=== PATIENT | male | born 1970 | race Caucasian/White ===

== ENCOUNTER 2024-10-22 07:03 | Inpatient (IN) | payer OTHER, SELFPAY ==
[2024-10-22] VITALS (8 sets, daily range): BP systolic 105–144; BP diastolic 73–91; BMI 23.5; BMI 24.0
[2024-10-22 03:11] LABS: Hematocrit 43.5 % (39.0-52.0); Hemoglobin 16.1 g/dL (13.0-18.0); Mean Corp Hgb Conc. 37.0 g/dL (33.0-37.0); Mean Corpuscular Volume 90.8 fL (80.0-94.0); Nucleated Red Blood Cells % 0 % (-); Platelet Count 242 10^3/uL (130-400); Red Cell Dist. Width 11.9 % (11.5-14.5)
[2024-10-22 03:19] LABS: Urine Character Clear (Clear)
[2024-10-22 03:38] LABS: ALT (SGPT) 107 U/L (0-50); AST (SGOT) 163 U/L (17-59); Albumin 4.3 g/dl (3.5-5.0); Alkaline Phosphatase 85 U/L (38-126); Blood Urea Nitrogen 16 mg/dl (9-20); Calcium 9.3 mg/dl (8.4-10.2); Carbon Dioxide 22 mmol/L (22-30); Chloride 103 mmol/L (98-107); Estimated Creatinine Clearance 123 ml/min; Glucose 132 mg/dl (70-99); Lipase 1120 U/L (23-300); Potassium 4.0 mmol/L (3.5-5.1); Sodium 135 mmol/L (135-145); Total Protein 7.4 g/dl (6.3-8.2); eGFR > 60.00
[2024-10-22 03:50] LABS: Urine White Cell 0-2 /HPF (0-5)
[2024-10-22] MEDS: ZOFRAN 4 MG IV (03:54)
[2024-10-22] MEDS: LR 1000 IV ×4 (03:54→18:41)
[2024-10-22] MEDS: MORPHINE SULFATE 4 MG IV (03:56)
[2024-10-22] MEDS: DILAUDID 1 MG IV ×4 (05:20→20:18)
--- NOTE | 2024-10-22 05:46 | ED.GENMED ---
History of Present Illness
General
Chief Complaint: Abdominal Pain
Source: patient
Time Seen by Provider: 10/22/24 03:09
Nursing documentation reviewed up to this point in time: agreed with
History of Present Illness
History of Present Illness:
Note:
CHIEF COMPLAINT(S)
Abdominal pain
HISTORY OF PRESENT ILLNESS
The patient is a 54-year-old male who presents with abdominal pain that began on Tuesday morning, persisting since yesterday morning. The patient describes waking up with the pain. He has experienced similar pain in the past, which he associated with
alcohol consumption. On examination, tenderness was noted in the abdomen upon palpation.
PHYSICAL EXAM
- Cardiovascular: Heart sounds are normal.
- Respiratory: Lung sounds are clear.
Nursing notes reviewed and vital signs reviewed.
PLAN
The plan includes administering medication for pain relief and performing a computed tomography (CT) scan to further evaluate the source of the abdominal pain.
DIFFERENTIAL DIAGNOSIS
The Differential Diagnosis includes, in no particular order and is not limited to:
1. Acute pancreatitis
2. Peptic ulcer disease
3. Gastroesophageal reflux disease (GERD)
4. Cholelithiasis
5. Cholecystitis
6. Hepatitis
7. Bowel obstruction
8. Gastritis
9. Diverticulitis
10. Appendicitis
Disposition:
SUMMARY OF ENCOUNTER
The patient is a 24-year-old male who presented with approximately 24 hours of upper abdominal pain. Lab results showed an elevated lipase level. A CT scan of the abdomen and pelvis with IV contrast revealed moderate stranding around the pancreas,
most pronounced in the pancreatic tail, with ill-defined hypoenhancement in the pancreatic tail. These findings are suspicious for acute interstitial edematous pancreatitis involving the pancreatic tail. The common bile duct (CBD) was normal with no
significant dilation observed. Additionally, there was a thick-walled distended distal duodenum, likely reactive. The decision was made to admit the patient to the hospital for management of suspected acute interstitial edematous pancreatitis
affecting the pancreatic tail.
DISPOSITION
Admit
ASSESSMENT
The clinical findings and imaging results indicate acute interstitial edematous pancreatitis, predominantly affecting the pancreatic tail. This is supported by elevated lipase levels and CT scan findings.
INDEPENDENT REVIEW OF LABS AND INTERPRETATION OF TESTS
My independent review of lipase is elevated.
My independent interpretation of the CT scan of the abdomen and pelvis is moderate stranding around the pancreas, ill-defined hypoenhancement in the pancreatic tail, indicative of acute interstitial edematous pancreatitis with involvement of the
pancreatic tail. The common bile duct is normal with no significant dilation of the pancreatic duct.
PLAN
The patient will be admitted for further management of acute interstitial edematous pancreatitis. Treatment may include intravenous fluids, pain control, and monitoring for any complications. Further evaluation and treatment will be conducted by the
hospital service.
MEDICAL DECISION MAKING
- Number and Complexity of Problems Addressed: Chronic conditions affecting care include acute pancreatitis, derived from the differential diagnosis: acute pancreatitis, peptic ulcer disease, gastroesophageal reflux disease (GERD), cholelithiasis,
cholecystitis, hepatitis, bowel obstruction, gastritis, diverticulitis, appendicitis.
- Data:
Category 1
My independent interpretation of the CT scan of the abdomen and pelvis
Elevated lipase confirmed
- Risk:
Urgent admission due to the risk of pancreatitis complications and need for immediate treatment.
Phy Exam
General Physical Exam
General Presentation: moderate distress
General Skin: warm and dry
General Habitus: normal
Cardiovascular Exam
Cardiovascular Exam: regular rate/rhythm and no edema
Gastrointestinal Exam
Palpation: left upper quadrant: Moderate tenderness, right upper quadrant: Moderate tenderness and generalized: Mild tenderness
Neurological Exam
Neurological Exam: alert and oriented x3
Musculoskeletal Exam
Musculoskeletal Exam: full ROM and no edema
Skin Exam
Skin Exam: normal color and warm/dry
Psychiatric Exam
Psychiatric Exam: normal mood/affect
Course
Orders/Labs/Results
Orders:
Orders
10/22/24 02:33
IV Insert/Care/Rem.- Treatment PRN
Straight cath- Treatment ONCE
10/22/24 02:59
Cardiovascular Evaluation Urgent
Is patient fasting: Yes
Complete Blood Count/With Diff Urgent
Comprehensive Metabolic Panel Urgent
LDL Cholesterol, Direct Urgent
Lipase Urgent
Triglycerides Urgent
Is patient fasting: Yes
Comment: ADD
Urinalysis Reflex To Culture Urgent
Date Specimen was Collected: 10/22/24
Time Specimen was Collected: 02:33
Urine Microscopic Reflex Cult Urgent
10/22/24 03:03
EKG [Electrocardiogram (*1)] Urgent
Reason for Study: Abdominal Pain
EKG- Treatment ONCE
10/22/24 03:37
Morphine Sulfate 4 mg IV NOW STA
Ondansetron Injectable [Zofran] 4 mg IV NOW STA
10/22/24 03:38
CT Abd/pelvis W Iv Cont Urgent
Comment:
Reason For Exam: upper abd pain
10/22/24 04:00
Lactated Ringers [Lr] 1,000 ml IV 250 mls/hr
10/22/24 05:11
HYDROmorphone [Dilaudid] 1 mg IV NOW STA
10/22/24 Breakfast
NPO
Allow oral meds: Yes
Allow clear liquids: Sips of Clears
10/22/24 06:33
HYDROmorphone [Dilaudid] 0.5 mg IV NOW STA
Ketorolac [Toradol] 30 mg IV NOW STA
10/22/24 06:38
Admit/Transfer Patient As Directed
Co-Sign Provider:
Level of Care: Inpatient admission
Assign to:: Medical/Surgical
Physician / Group: Olga
Diagnosis: Acute pancreatitis
Reason for Hospitalization: severe pancreatitis
Expected length of stay greater than two midnights?: Yes
ELOS- Estimated Length of Stay in days: 2
I certify the patient meets the requirements for IP care: Yes
Code Status As Directed
Resuscitation Status: Full Code
PRN Pain Medication Management As Directed
May give lesser potent ordered pain med per pt: Yes
preference::
Protocol:: Medication orders for pain may be administered in a
manner that supports deferring to patient preference
when the pt is:
- Requesting an ordered lesser potent pain medication.
Least to most potent pain medications are defined
as: acetaminophen < NSAID < tramadol < opioids
(morphine, oxycodone, hydromorphone).
- Requesting a lesser dose of the same medication IF
ORDERED.
- Requesting a less intrusive route of administration
if both routes are prescribed by the provider (PO <
IV).
10/22/24 06:44
Add On- LAB Stat
Tests Added?: Triglyceride level
10/22/24 09:03
Acetaminophen [Tylenol] 650 mg PO Q4HPRN PRN
HYDROmorphone [Dilaudid] 1 mg IV Q3HPRN PRN
Ketorolac [Toradol] 15 mg IV Q6HPRN PRN
Lactated Ringers [Lr] 1,000 ml IV 110 mls/hr
Ondansetron Injectable [Zofran] 4 mg IV Q6HPRN PRN
10/22/24 09:03
Activity As Directed
Activity Level: With Assistance
Pneumatic Compression Sleeves As Directed
Type: Knee high
Vital Signs As Directed
Frequency: Per unit guidelines
DX Deep Vein Thrombosis Video Routine
10/23/24 06:19
Complete Blood Count/No Diff IN AM
Lipase IN AM
Abnormal Lab Results
10/22/24
02:59
WBC 19.4 H 10^3/uL
(4.8-10.8)
MCH 33.6 H pg
(27.0-31.0)
Abs Immat Gran (auto) 0.1 H 10^3/uL
(0-0.05)
Absolute Neuts (auto) 17.0 H 10^3/uL
(1.4-6.5)
Absolute Lymphs (auto) 1.0 L 10^3/uL
(1.2-3.4)
Absolute Monos (auto) 1.1 H 10^3/uL
(0.1-0.6)
Immature Gran % 0.6 H %
(0-0.5)
Neutrophils % 87.7 H %
(42.2-75.2)
Lymphocytes % 5.3 L %
(20.5-51.1)
Glucose 132 H mg/dl
(70-99)
AST 163 H U/L
(17-59)
ALT 107 H U/L
(0-50)
Triglycerides 1426 H mg/dl
(10-149)
Total Cholesterol 210 H mg/dl
(50-199)
Lipase 1120 H* U/L
(23-300)
Urine Ketones 1+ A
(Negative)
Ur Occult Blood Reflex 3+ A
(Negative)
Urine RBC 7-10 A /HPF
(0-2)
Urine Bacteria (Reflex) Few A
(Negative)
Urine Albumin (Reflex) 1+ A
(Neg - Trace)
10/22/24 02:59
10/22/24 02:59
Vital Signs
Initial and Last Documented VS:
Initial Vital Signs
Temp Pulse Resp BP Pulse Ox
97.7 F 73 20 144/90 100
10/22/24 02:28 10/22/24 02:28 10/22/24 02:28 10/22/24 02:28 10/22/24 02:28
Last Documented Vital Signs
Temp Pulse Resp BP Pulse Ox
99.2 F 100 16 114/80 95
10/23/24 23:22 10/23/24 23:22 10/23/24 23:22 10/23/24 23:22 10/23/24 23:22
*Pulse Oximetry
SaO2: 100
Oxygen Mode of Delivery: Room air
Patient hypoxic: no
*Critical Care Note
Total Time (30-74mins, 75-104mins- exclusive of procedures): 33 (Critical care statement: A total of 33 minutes of critical care time was provided for this patient. This time is separate from time utilized to perform the aforementioned documented
procedures. Aggregate critical care time includes only time during which I was engaged in work directl)
Update Note
Update Note:
NAME: MIKKI CASTILLO
DATE OF EXAM: 10/22/2024
Patient No: [id number]
Physician: ASAD
Date of : 1970
Past Medical History (entered by Technologist):
Reason For Exam (entered by Technologist):
Other Notes (entered by Technologist): Patient started with left abd pain yesterday morning. The pain has now moved to his epigastric area. Vomited 2 times.
No prior
Additional Information (per [facility]):
CT Abdomen and Pelvis (with IV contrast):
IMPRESSION:
Moderate stranding about the pancreas, most pronounced within the pancreatic tail where there is ill-defined hypoenhancement within the pancreatic tail (series 201, image 24) measuring approximately 1.5 x 1.6 cm.
Overall findings are suspicious for acute interstitial edematous pancreatitis with necrosis of the pancreatic tail.
The CBD is normal. No significant dilation of the CBD or pancreatic duct.
Mildly thick walled distal duodenum, likely reactive.
The report was faxed/transmitted at 5:32 AM EST. Please call [facility] at if you would like to discuss the case or have questions.
Tony Ho M.D.
This report has been electronically signed and verified by the Radiologist whose name is printed above.
ED Attending Note
-
Portions of this chart may have been created with voice recognition software.� Occasional wrong word or��sound alike� substitutions may have occurred due to the inherent limitations of voice recognition software.
Discharge Plan
Departure
Patient Disposition: Admit
Date of Disposition: 10/22/24
Time of Disposition: 05:46
Admit to: Telemetry
Presentation/result/management discussed w/ accepting MD/DO: Hospitalist
Discharge Problem:
Pancreatitis, Interstitial pancreatitis
Interventions
Interventions:
*Risk Screen - Suicide Last Done: 10/22/24 02:28
*General Assessment Last Done: 10/22/24 02:28
*Neglect/Abuse Screening Last Done: 10/22/24 02:28
*ED- Fall Risk Assessment Last Done: 10/22/24 02:28
*ED COVID-19 Vaccine History Last Done: 10/22/24 02:28
*Nursing Disposition Last Done: 10/22/24 09:03
HN-Whyvdo-Pwmxsyxhnn Assessment Last Done: 10/22/24 02:46
Discharge Date and Time
Discharge Date/Time: 10/22/24 09:03
--- NOTE | 2024-10-22 06:16 | HPS.HSE ---
Family Physician
-
Family Physician: Tiana Parker MD
Chief Complaint
-
Abdominal pain
History of Present Illness
This is a 54-year-old male (Welsh-speaking) with no known segment past medical history presenting to the emergency department with abdominal pain nausea and vomiting.
Patient (interpretation via spouse), reports about 2 days of intermittent abdominal pain and now more persistent. Patient reports pain started in the left flank and radiated to the epigastric region. Denies any urinary symptoms. Denies any fevers
or chills. Denies any headache. Reports associated nausea and 2 episodes of nonbloody and nonbilious emesis. Denies any prior history of such pain. Patient denies any history of gallstones. Denies history of pancreatitis. Patient reports that
he drinks about 3 glass of 5% alcoholic beverage when he drinks which he says is not daily but occasionally. He he and spouse did endorse that he drank a little bit more over 19 October all the day. He started having pain about 2 days ago. He has not
had any drink since then. He denies any medications. He denies using anything [id number]. He denies any family history of intra-abdominal processes. He denies any family history of connective tissue disease.
In the emergency department patient was afebrile, blood pressure 140/90 with a pulse of 79 was satting 100% on room air. ECG shows a normal sinus rhythm at a rate of [address] or T wave changes.
He has leukocytosis to 19.4, hemoglobin and platelets were normal. Electrolytes are normal. BUN and creatinine were normal. Glucose was normal.
Total bilirubin was normal. AST 163 ALT 107 and lipase was 1120.
CT of the abdomen pelvis revealing moderate stranding about the pancreas most pronounced within the pancreatic tail with ill-defined hypoenhancement measuring approximately 1.5 x 1.6 cm suspicious for acute interstitial edematous pancreatitis with
necrosis of the pancreatic tail. CBD is normal. No segment dilation of the pancreatic duct. Reactive changes with mildly thick walled distal duodenum.
Medical History
Past Medical History
Past Medical History: Reports None
Past Surgical History: Reports None
Social History
Tobacco: Non-smoker
Alcohol: Occasional
Drug: None
Personal:
Living: With Family
Family History
Family History: Not pertinent
Allergies / Home Medications
Allergies reflects when Allergies were last updated in [facility].
Home Medications with original date entered in [facility]
Allergy/Medication List:
Allergies
Allergy/AdvReac Type Severity Reaction Status Date / Time
No Known Allergies Allergy Unverified 10/22/24 02:28
Home Medications
No Meds [No Current Medications] 10/22/24
Review of Systems
-
History Source: Patient
Constitutional: Reports No Symptoms
EENT: Reports No Symptoms
Respiratory: Reports No Symptoms
Cardiac: Reports No Symptoms
Abdomen/GI: Reports Abdominal Pain
: Reports No Symptoms
Musculoskeletal: Reports No Symptoms
Skin: Reports No Symptoms
Neurological: Reports No Symptoms
Endocrine: Reports No Symptoms
Hematologic/Lymphatic: Reports No Symptoms
Psych: Reports No Symptoms
Physical Exam
Vital Signs
Vital Signs
Temp Pulse Resp BP Pulse Ox
97.7 F 73 20 144/90 100
10/22/24 02:28 10/22/24 02:28 10/22/24 02:28 10/22/24 02:28 10/22/24 05:52
Physical Exam
General: Well Developed, Well Nourished and No Apparent Distress
HEENT: NormoCephalic, Moist mucous membranes and Atraumatic
Respiratory: Clear
Cardiac: S1/S2 and Regular Rhythm; No Murmur or Rub
GI: Soft, Non Tender, Non Distended and Normal Bowel Sounds; No Organomegaly
Rectal: Deferred by Provider
Musculoskeletal: No Clubbing, No Cyanosis and No Edema
Skin: No Rash
Neuro: Nonfocal/grossly intact
Laboratory Results
-
10/22/24 02:59
10/22/24 02:59
Laboratory Results
Total Bilirubin 1.3 mg/dl (0.2-1.3) 10/22/24 02:59
AST 163 U/L (17-59) H 10/22/24 02:59
ALT 107 U/L (0-50) H 10/22/24 02:59
Alkaline Phosphatase 85 U/L (38-126) 10/22/24 02:59
Lipase 1120 U/L (23-300) H* 10/22/24 02:59
Data Reviewed
-
CT Scan: Report Reviewed by me
Medical Tests (Nuc Med, Echo, EKG etc): Image Personally Visualized and interpreted
Lab Data: Labs Reviewed by me
Old Records: Reviewed
Impression/Plan
-
IMPRESSION:
54-year-old male with no known past medical history presenting to the emergency department abdominal pain and found to have acute pancreatitis with interstitial pancreatitis and possibility of necrosis in the pancreatic tail. He has a mild
transaminitis as well. Overall picture is consistent with alcoholic pancreatitis although patient did not endorse heavy drinking. Cannot completely rule out gallstone pancreatitis as a gallstone might of passed through but history is not
consistent with this without recurrent episode of waxing and waning abdominal pain. No evidence of acute infection or cholangitis at this time.
PLAN:
Acute pancreatitis -severe, suspect alcohol induced pancreatitis with interstitial pancreatitis and possibility of developing necrosis
- Admit to MedSurg
-N.p.o. for now
-Pain control with Dilaudid, Toradol, acetaminophen
-Aggressive hydration with 200 mL of LR per hour x 2 L
-Antiemetics
-Trend LFTs
-Will get MRCP to rule out ongoing biliary obstruction as well given no prior history of pancreatitis, severe pancreatitis and possible gallstones. AST to ALT ratio not definitive for alcoholic hepatitis.
- Check triglyceride level
- encouraged abstinence from etoh
- No offending drugs, no recent flulike illness or sick contacts or recent travels.
DVT prophylaxis�SCDs
CODE STATUS�full code
[2024-10-22] MEDS: DILAUDID 0.5 MG IV (06:41)
[2024-10-22] MEDS: TORADOL 30 MG IV (06:43)
--- NOTE | 2024-10-22 08:34 | W.PN.HOSP.TC ---
Addendum entered and electronically signed by Solis Valentine MD 10/22/24 21:22:
Attending Addendum-
I saw and evaluated the patient. I reviewed the resident�s note and agree with findings and plan as documented in the resident�s note. Sub: Continues to have epigastric pain. Denies fevers chills NV. Doesn't feel hungry. Full 12 point ROS reviewed
and negative except as documented Exam: Vitals reviewed in chart GEN-NAd heart RRR lungls clear abd soft TTP epigastric region, no reboud guarding LE no edema
Plan:
#Acute necrotizing pancreatitis
-Severe Hypertriglyceridemia- induced
-cont NPO
-Pain control with Dilaudid, Toradol, acetaminophen
-Aggressive IV hydration LR
-Antiemetics
-Trend LFTs
-CT A/P-Findings of acute pancreatitis with a 1.8 cm focus of hypoattenuation within the pancreatic tail, likely necrosis. There is fluid which extends into the left paracolic gutter. reactive duodenitis.
-c/s GI
-check TG in am
-t/c insulin gtt
# Leukocytosis
- possibly reactive
- repeat CBC In am
- hold off on empiric abx for now
# Transaminitis
- trend
- cont IVF
DVT prophylaxis�SCDs
CODE STATUS�full code->DNR
ACP
Patient consented to discuss, was alone, time spent explanation of advance directives, changes in health status, patient�s health care wishes if the patient becomes unable to make health decisions, goals of care, code status, and prognosis, 'I dont
want to be full code' code status change- 16 minutes
Time spent coordinating care, review of plan of care with resident, personally reviewed previous records in EMR, med rec, labs, radiology, d/w nursing, family total time documented is exclusive of any additional time listed that was spent in advance
care planning discussion -�51 minutes
Original Note:
Today's Communication/Plan
-
C/w IVF, pain management, antiemetics, NPO for now, pending final read CT Abd/pelvis
Assessment / Plan
Assessment / Plan
54 year old male with no significant pmhx who presented with 2 days of abdominal pain, nausea and vomiting, found to have pancreatitis
#Acute Interstitial Pancreatitis w/ necrosis of pancreatic Tail
- likely alcohol induced given history, no biliary findings of imaging and no hx of gallstones
- abdominal pain, Lipase >3x ULN, Leukocytosis 19.4
- prelim CT report - peripancreatic stranding, necrosis of pancreatic tail, interstitial edema surrounding pancreas. Pending final read, may consider additional imaging US Abd vs. MRCP depending on findings.
- IVF LR 1.5ml/kg/hr
- IV pain management with IV Toradol for moderate, Dilaudid as needed for severe pain
- Zofran prn
- triglycerides pending
- NPO for now
- monitor for development of systemic signs given pancreatic tail necrosis
#Hypertriglyceridemia
- TGs 1426, Lipid Panel unable to result properly due to TGs, no prior h/o lipid disease per patient
- likely contributing factor to pancreatitis
- Fenofibrate 145mg hs for TGs >1000 in setting of acute pancreatitis
- will wait for TG reduction to repeat Lipid Panel, or possibly do as OP
DVT PPx: SCDs
Code Status: Full Code
Anticipated Discharge: 24 - 48 hours
Subjective/Interval History
-
Date of Service: October 22, 2024
Feeling slightly better after morphine. No new nausea or vomiting. Still having abd pain. Able to tolerate sips of water. No fevers or chills. Patient is Romanian speaking.
Objective Data
-
Labs:
Laboratory Results
10/22/24
02:59
WBC 19.4 H
Hgb 16.1
Hct 43.5
Plt Count 242
Sodium 135
Potassium 4.0
Chloride 103
Carbon Dioxide 22
BUN 16
Creatinine 0.7
Glucose 132 H
Calcium 9.3
Total Bilirubin 1.3
AST 163 H
ALT 107 H
Alkaline Phosphatase 85
Vital Signs:
Vital Signs
Temp Pulse Resp BP Pulse Ox
97.7 F 75 18 131/86 95
10/22/24 02:28 10/22/24 07:15 10/22/24 07:15 10/22/24 07:00 10/22/24 07:15
Review of Systems
-
History Source: Patient
All other systems: Reviewed and negative
Constitutional: Reports No Symptoms
EENT: Reports No Symptoms Reported
Respiratory: Reports No Symptoms
Cardiac: Reports No Symptoms
Abdomen/GI: Reports Abdominal Pain and Nausea; Denies Vomiting, Diarrhea, Bloody Stools or Hematemesis
Breast: Reports N/A
Genitourinary: Reports No Symptoms
Musculoskeletal: Reports No Symptoms
Skin: Reports No Symptoms
Neuro: Reports No Symptoms
Hematologic / Lymphatic: Reports No Symptoms
Physical Exam
-
General: Well Developed, Well Nourished, No Apparent Distress, Comfortable and Conversant
HEENT: Normocephalic, Atraumatic, Moist Mucous Membranes, Anicteric, [place] Conjunctivae, PERRLA, Nose Appears Normal and Ears Appear Normal
Respiratory: Clear to Auscultation; Negative Wheezes, Rales or Rhonchi
Cardiac: Regular Rhythm and S1/S2; Negative Murmur, Rub or Gallop
Breast: N/A
GI: Soft, Nondistended, Tender and Other (hypoactive bowel sounds)
Genito-urinary: No Costovertebral Tender
Musculoskeletal: No Clubbing, No Cyanosis and No Edema
Skin: Warm, Dry, Normal Turgor and IV Access / Catheter Site
Neuro: AO x 3
Psych: Calm
[2024-10-22 08:54] LABS: Triglycerides 1442 mg/dl (10-149)
[2024-10-22 13:31] LABS: HDL Cholesterol 50 mg/dl
[2024-10-22] MEDS: TORADOL 15 MG IV ×2 (13:42→22:28)
[2024-10-22 15:33] LABS: LDL Cholesterol, Direct < 30 mg/dl
[2024-10-22] MEDS: TRICOR 145 MG PO (20:07)
[2024-10-23] MEDS: LR 1000 IV ×2 (00:03→07:54)
[2024-10-23] MEDS: DILAUDID 1 MG IV ×5 (00:35→22:15)
[2024-10-23 07:00] VITALS: BP 126/82
--- NOTE | 2024-10-23 07:29 | W.PN.HOSP.TC ---
Addendum entered and electronically signed by Solis Valentine MD 10/24/24 08:41:
Attending Addendum-
I saw and evaluated the patient. I reviewed the resident�s note and agree with findings and plan as documented in the resident�s note. Sub: epigastric pain improved. tolerating clears. Denies fevers chills NV. still with poor appetite.. Full 12
point ROS reviewed and negative except as documented Exam: Vitals reviewed in chart GEN-Nad heart RRR lungs clear abd soft TTP epigastric region, no rebound guarding LE no edema
Plan:
#Acute necrotizing pancreatitis
-Pancreatic Divisum
-Severe Hypertriglyceridemia- now resolved- >1000->127
-start clears
-Pain control with Dilaudid, Toradol, acetaminophen
-increase IV hydration LR
-Antiemetics
-Trend LFTs-improving
-CT A/P-Findings of acute pancreatitis with a 1.8 cm focus of hypoattenuation within the pancreatic tail, likely necrosis. There is fluid which extends into the left paracolic gutter. reactive duodenitis.
-c/s GI - appreciate input
-MRCP- 1. Findings of pancreatitis with a heterogeneous appearance of the pancreatic tail which is likely secondary to known necrosis although evaluation is limited given lack of IV contrast. There is no discrete peripancreatic collection. There is
moderate fluid which tracks into the paracolic gutters and retroperitoneum. There is small volume perihepatic and perisplenic free fluid.
2.Pancreatic divisum.
-lipase trending up slightly- increase IVF and repeat in am
-add fenofibrate
# Hypobilirubinemia
- elevated t bili
- cont ot trend
# Leukocytosis
- reactive
- improving
- repeat CBC In am
- hold off on empiric abx
# Transaminitis
- trend, decreasing
- cont IVF
# Hyponatremia
- cont to trend
- repeat BMP in am
DVT prophylaxis�SCDs
CODE STATUS�full code->DNR-->Full patient recinded
Time spent coordinating care, review of plan of care with resident, personally reviewed records in EMR, med rec, consults, notes, labs, radiology, d/w nursing � 52 mins
Original Note:
Today's Communication/Plan
-
increase fluids
c/w iv antiemetics, iv pain meds
GI consult
ADAT
Assessment / Plan
Assessment / Plan
54 year old male with no significant pmhx who presented with 2 days of abdominal pain, nausea and vomiting, found to have pancreatitis
#Acute Interstitial Pancreatitis w/ necrosis of pancreatic Tail (2* hypertriglyceridemia vs. choledocholithiasis vs. alcoholic)
#Transaminitis
- likely alcohol induced given history, no biliary findings of imaging and no hx of gallstones
- abdominal pain, Lipase >3x ULN, Leukocytosis 19.4
- prelim CT report - peripancreatic stranding, 1.8 focus of likely necrosis of pancreatic tail, interstitial edema surrounding pancreas, reactive duodenitis.
- Lipase increase to 1400s, will increase IVF to 200cc/hr
- IV pain management with IV Toradol for moderate, Dilaudid as needed for severe pain
- Zofran prn
- triglycerides 1426 -- s/p Fenofibrate 145mg & fluids, repeat 124.
- Will try CLD breakfast, ADAT
- monitor for development of systemic signs given pancreatic tail necrosis
- GI consulted for questionable choledocholithiasis, transaminitis on presentation and ? pursuit of MRCP -- pt should have GI follow up with possible repeat imaging
#Hypertriglyceridemia
- TGs 1426, Lipid Panel unable to result properly due to TGs, no prior h/o lipid disease per patient
- likely contributing factor to pancreatitis
- Fenofibrate 145mg hs for TGs >1000 in setting of acute pancreatitis
- TGs reduced to 124 today
- follow up with PCP as outpatient for lipid monitoring
DVT PPx: SCDs
Code Status: Full Code
Anticipated Discharge: 24 - 48 hours
Subjective/Interval History
-
Date of Service: October 23, 2024
No acute complaints when seen this AM, however he had just received pain medication in the AM prior to me arriving. No new nausea and vomiting. Feels like he is ready to try eating.
Objective Data
-
Labs:
Laboratory Results
10/23/24
06:19
WBC Pending
Hgb Pending
Hct Pending
Plt Count Pending
Sodium Pending
Potassium Pending
Chloride Pending
Carbon Dioxide Pending
BUN Pending
Creatinine Pending
Glucose Pending
Calcium Pending
Total Bilirubin Pending
AST Pending
ALT Pending
Alkaline Phosphatase Pending
Vital Signs:
Vital Signs
Temp Pulse Resp BP Pulse Ox
99.1 F 97 16 105/73 93
10/22/24 23:20 10/22/24 23:20 10/22/24 23:20 10/22/24 23:20 10/22/24 23:20
I&O
10/22/24 10/23/24 10/24/24
06:59 06:59 06:59
Intake Total 200 / 200
Balance 200 / 200
Review of Systems
-
Unable to obtain full review of systems at this time due to: Language Barrier
History Source: Patient
Constitutional: Reports No Symptoms
EENT: Reports No Symptoms Reported
Respiratory: Reports No Symptoms
Cardiac: Reports No Symptoms
Abdomen/GI: Reports Abdominal Pain and Nausea; Denies Vomiting or Diarrhea
Breast: Reports N/A
Genitourinary: Reports No Symptoms
Musculoskeletal: Reports No Symptoms
Skin: Reports No Symptoms
Neuro: Reports No Symptoms
Endocrine: Reports No Symptoms
Hematologic / Lymphatic: Reports No Symptoms
Physical Exam
-
General: Well Developed, Well Nourished, No Apparent Distress and Comfortable; Negative Fever or Chills
HEENT: Normocephalic, Atraumatic, Moist Mucous Membranes, Anicteric, [place] Conjunctivae, PERRLA, Nose Appears Normal and Ears Appear Normal
Respiratory: Clear to Auscultation; Negative Wheezes, Rales or Rhonchi
Cardiac: Regular Rhythm and S1/S2; Negative Murmur or Rub
GI: Nondistended and Tender; Negative Normal Bowel Sounds (hypoactive bowel sounds)
Genito-urinary: No Costovertebral Tender
Musculoskeletal: No Clubbing, No Cyanosis and No Edema
Skin: Warm, Dry and IV Access / Catheter Site
Neuro: AO x 3
Psych: Calm
[2024-10-23] MEDS: FLUSH (NSS) 1 FLUSH IV ×2 (07:59→17:04)
[2024-10-23 08:39] LABS: ALT (SGPT) 51 U/L (0-50); AST (SGOT) 59 U/L (17-59); Albumin 3.3 g/dl (3.5-5.0); Alkaline Phosphatase 61 U/L (38-126); Blood Urea Nitrogen 11 mg/dl (9-20); Calcium 8.4 mg/dl (8.4-10.2); Carbon Dioxide 28 mmol/L (22-30); Chloride 98 mmol/L (98-107); Estimated Creatinine Clearance 105 ml/min; Glucose 83 mg/dl (70-99); Lipase 1325 U/L (23-300); Potassium 4.2 mmol/L (3.5-5.1); Sodium 133 mmol/L (135-145); Total Protein 5.9 g/dl (6.3-8.2); Triglycerides 124 mg/dl (10-149); eGFR > 60.00
[2024-10-23 09:11] LABS: Hematocrit 38.1 % (39.0-52.0); Hemoglobin 13.1 g/dL (13.0-18.0); Mean Corp Hgb Conc. 34.4 g/dL (33.0-37.0); Mean Corpuscular Volume 96.7 fL (80.0-94.0); Red Cell Dist. Width 12.7 % (11.5-14.5)
--- NOTE | 2024-10-23 10:14 | CON.GI ---
Addendum entered and electronically signed by Xin Mckeon DO 10/23/24 13:10:
The patient was seen and examined by me independently in collaboration with the nurse practitioner.
Past medical history/social history/medications/allergies/family history reviewed.
Lab data and imaging data reviewed.
Anuj Perrin is a 54 y.o. with no significant pmhx who presented with abdominal pain found to have pancreatitis with 1.8 cm focus of necrosis in the pancreatic tail, triglycerides found to be >1000. He admits to social etoh abuse, more heavy use
about 15 years ago. Denies prior history of pancreatitis. He was on an insulin gtt, now normal triglycerides. Currently, tolerating a diet, states he has no pain, wanting to be discharged later.
MRCP showed pancreatitis with likely pancreatic necrosis in the pancreatic tail. There is no discrete peripancreatic collection. There is moderate fluid which tracks into the paracolic gutters and retroperitoneum. There is small volume perihepatic
and perisplenic free fluid. Pancreatic divisum. Gallbladder mildly distended.
WBC 19.4 --> 12.3
Lipase 1120 --> 1325
BUN 126 -->11
CRP >270
Trig 1426 --> 124
Tbili 1.3 --> 2.2
Dbili 1.0
AST 163 --> 59
ALT 107 --> 51
Alk phos 85 --> 61
#Acute interstitial pancreatitis c/b pancreatic necrosis-- ddx hypertrig vs. pancreatic divisum vs. etoh vs. microlithiasis
-initial leukocytosis, now resolved. No evidence of infection. Hold on antibiotics
-clinically improving, but CRP >250 and worsening lipase; BUN downtrending which is reassuring
-he is tolerating a diet and endorsing wanting to go home, which is also reassuring
-give 500 L bolus now
-recommend observation overnight and if numbers improve and he clinically still appears well, will be okay for d/c and repeat MRI in 4-6 weeks with outpatient GI f/u
Original Note:
Consultation
-
Date/Time Consultation Requested: 10/23/24 0710
Date/Time Consultation Performed: 10/23/24 1015
Requesting Provider: driss Arias MD
Performing Provider: ADA Hurt, Janice Mckeon DO
Reason for Consultation: pancreatitis
Medical History
Chief Complaint / HPI
Chief Complaint: abdominal pain
History of Present Illness:
Pt is a 54yo with no past medical problems presents with onset of upper abdominal pain. On admission noted with WBC 19,400, hbg 16, bili 1.3 with rise to 2.2 after admission, AST 163, ALT 107 and alk phos 85 with lipase 1120. He was also note with
initial triglycerides of 1426 then drop to 124. He has completed imaging with CT with acute pancreatitis with 1.8 cm focus in pancreatic tail likely necrosis and fluid into left paracolic gutter with possible reactive duodenitis, and prominent upper
abdominal/RP nodes likely reactive, hepatic steatosis and likely medullary nephrocalcinosis with normal gallbladder and bile ducts. He proceeded to MRCP with changes of pancreatitis with pancreatic tail necrosis with some limitation without contrast
without collection There is no discrete peripancreatic collection. There is moderate fluid which tracks into the paracolic gutters and retroperitoneum. There is small volume perihepatic and perisplenic free fluid, pancreatic divisum but no
cholelithiasis or choledocholithiasis seen.
In review with patient he admits to onset of pain on Tuesday that progressively got worse. On encouragement of his he presented to ER for evaluation. He states pain was 9/10 on admission now 4/10. He denies hx pancreatitis in past. +
social ETOH 1-2 beers per week occasional 4 beers but admits to increased ETOH 15 years ago. He otherwise denies dysphagia, GERD, nausea, vomiting, diarrhea, constipation or rectal bleeding.
.
Past Medical History
Past Medical History: Other (none )
Social History
Tobacco: Non-Smoker
Alcohol: Occasional
Drug: None
Personal:
Living: With Family
Employment: Employed ([employer] )
Family History
Family History: Other (no family hx pancreatitis or pancreatic Cancer, mother and sibling alive and well, father with hx CVA)
Allergies / Home Medications
Allergy/AdvReac Type Severity Reaction Status Date / Time
No Known Allergies Allergy Unverified 10/22/24 02:28
�Medication �Instructions �Recorded
No Meds [No Current Medications] 10/22/24
Review of Systems
-
History Source: Patient
Constitutional: Reports No Symptoms
EENT: Reports No Symptoms
Respiratory: Reports No Symptoms
Cardiac: Reports No Symptoms
Abdomen/GI: Reports Abdominal Pain
: Reports Dark Urine
Musculoskeletal: Reports No Symptoms
Skin: Reports No Symptoms
Neurological: Reports No Symptoms
Endocrine: Reports No Symptoms
Hematologic/Lymphatic: Reports No Symptoms
Vital Signs
Temp Pulse Resp BP Pulse Ox
99.1 F 95 16 126/82 98
10/23/24 07:00 10/23/24 07:00 10/23/24 07:00 10/23/24 07:00 10/23/24 08:00
Physical Exam
Exam
General: Well Developed, Well Nourished, No Apparent Distress and Other (t max 99.1 )
HEENT: Normocephalic and Anicteric
Respiratory: Clear
Cardiac: Regular Rhythm
GI: Soft, Non Distended and Tender (mild upper abdominal tenderness )
Musculoskeletal: No Clubbing and No Cyanosis
Skin: Warm and Dry
Neuro: Awake, Alert and AO x 3
Psych: Calm
Results
WBC 12.3 10^3/uL (4.8-10.8) H 10/23/24 06:19
Hgb 13.1 g/dL (13.0-18.0) 10/23/24 06:19
Hct 38.1 % (39.0-52.0) L 10/23/24 06:19
MCV 96.7 fL (80.0-94.0) H 10/23/24 06:19
Plt Count 242 10^3/uL (130-400) 10/22/24 02:59
Absolute Neuts (auto) 17.0 10^3/uL (1.4-6.5) H 10/22/24 02:59
Sodium 133 mmol/L (135-145) L 10/23/24 06:19
Potassium 4.2 mmol/L (3.5-5.1) 10/23/24 06:19
Chloride 98 mmol/L (98-107) 10/23/24 06:19
Carbon Dioxide 28 mmol/L (22-30) 10/23/24 06:19
BUN 11 mg/dl (9-20) 10/23/24 06:19
Creatinine 0.8 mg/dL (0.7-1.3) 10/23/24 06:19
Calcium 8.4 mg/dl (8.4-10.2) 10/23/24 06:19
Total Bilirubin 2.2 mg/dl (0.2-1.3) H D 10/23/24 06:19
AST 59 U/L (17-59) 10/23/24 06:19
ALT 51 U/L (0-50) H 10/23/24 06:19
Alkaline Phosphatase 61 U/L (38-126) 10/23/24 06:19
Lipase 1325 U/L (23-300) H* 10/23/24 06:19
Diagnostic Image Results:
10/22/24 CT Abd/pelvis W Iv Cont
Findings of acute pancreatitis with a 1.8 cm focus of hypoattenuation within the pancreatic tail, likely necrosis. There is fluid which extends into the left paracolic gutter. There is mild edema and enhancement along the first and second portions
of the duodenum which may represent reactive duodenitis. There are mildly prominent upper abdominal and retroperitoneal lymph nodes which are likely reactive.
Hepatic steatosis.
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
10/22/24 MR Mrcp Without
1. Findings of pancreatitis with a heterogeneous appearance of the pancreatic tail which is likely secondary to known necrosis although evaluation is limited given lack of IV contrast. There is no discrete peripancreatic collection. There is
moderate fluid which tracks into the paracolic gutters and retroperitoneum. There is small volume perihepatic and perisplenic free fluid.
2.Pancreatic divisum.
3. There is no evidence of cholelithiasis or choledocholithiasis.
4. Small left and trace right pleural effusions with adjacent atelectasis.
Prior GI Procedures:
EGD: none
Colonoscopy: none
Assessment / Plan
-
Pt is a 54yo with no past medical problems presents with onset of upper abdominal pain. On admission noted with WBC 19,400, hbg 16, bili 1.3 with rise to 2.2 after admission, AST 163, ALT 107 and alk phos 85 with lipase 1120. He was also note with
initial triglycerides of 1426 then drop to 124. He has completed imaging with CT with acute pancreatitis with 1.8 cm focus in pancreatic tail likely necrosis and fluid into left paracolic gutter with possible reactive duodenitis, and prominent upper
abdominal/RP nodes likely reactive, hepatic steatosis and likely medullary nephrocalcinosis with normal gallbladder and bile ducts. He proceeded to MRCP with changes of pancreatitis with pancreatic tail necrosis with some limitation without contrast
without collection There is no discrete peripancreatic collection. There is moderate fluid which tracks into the paracolic gutters and retroperitoneum. There is small volume perihepatic and perisplenic free fluid, pancreatic divisum but no
cholelithiasis or choledocholithiasis seen.
-pancreatitis first episode
-pancreatic divisum anatomy on MRI
-concern for pancreatic tail necrosis
-leukocytosis on admission
-elevated triglycerides on admission
-CT noted medullary nephrocalcinosis
-hematuria on UA
PLAN:
Etiology of pancreatitis unclear-- no gallstones on imaging, admits to 1-2 beers per week, noted initial elevated TG on admission then drop to normal with hydration, noted pancreatic divisum anatomy, calcium normal
-pt already feeling better
cont clear diet if continued improved consider low fat in am
cont IVF currently LR at 110/hr
pain control and treatment of elevated TG per hospitalist team -- may need repeat TG level OP to see if persistent elevation
add CRP
work up for medullary nephrocalcinosis/hematuria per hospitalist team
ETOH avoidance and avoid medication toxic to pancreas
OP follow up with GI with noted necrosis may need repeat imaging when inflammation improved
-
-
Thank you for consultation and allowing me to participate in the patient's care. Please call the [facility] physician during the after hours with any questions or concerns.
[2024-10-23 11:59] LABS: C-Reactive Protein > 270.00 mg/L (0.0-10.00)
[2024-10-23 12:18] LABS: Platelet Count 158 10^3/uL (130-400)
[2024-10-23] MEDS: NSS 500 IV (13:22)
[2024-10-23 15:35] VITALS: BP 122/68
--- NOTE | 2024-10-23 15:49 | CM ---
CM met with pt bedside- primarily [place] speaking but able to understand some Spanish
Pt resides with his spouse
He is indep at baseline- no DMEs
Indep throughout room
Rx- [facility] [place]
Discharge Disposition- home, no needs, family transport
[2024-10-23] MEDS: TORADOL 15 MG IV (17:03)
[2024-10-23] MEDS: TRICOR 145 MG PO (20:47)
[2024-10-23] MEDS: FLUSH (NSS) 4 FLUSH IV (22:16)
[2024-10-23 23:22] VITALS: BP 114/80
[2024-10-24] MEDS: DILAUDID 1 MG IV (06:16)
[2024-10-24] MEDS: FLUSH (NSS) 5 FLUSH IV (06:16)
[2024-10-24 07:30] VITALS: BP 103/71
[2024-10-24 07:31] LABS: Hematocrit 35.2 % (39.0-52.0); Hemoglobin 12.4 g/dL (13.0-18.0); Mean Corp Hgb Conc. 35.2 g/dL (33.0-37.0); Mean Corpuscular Volume 98.1 fL (80.0-94.0); Platelet Count 159 10^3/uL (130-400); Red Cell Dist. Width 12.8 % (11.5-14.5)
[2024-10-24 07:36] LABS: ALT (SGPT) 43 U/L (0-50); AST (SGOT) 47 U/L (17-59); Albumin 3.2 g/dl (3.5-5.0); Alkaline Phosphatase 72 U/L (38-126); Blood Urea Nitrogen 10 mg/dl (9-20); Calcium 8.7 mg/dl (8.4-10.2); Carbon Dioxide 31 mmol/L (22-30); Chloride 101 mmol/L (98-107); Estimated Creatinine Clearance 84 ml/min; Glucose 93 mg/dl (70-99); Potassium 4.6 mmol/L (3.5-5.1); Sodium 136 mmol/L (135-145); Total Protein 5.8 g/dl (6.3-8.2); eGFR > 60.00
--- NOTE | 2024-10-24 07:43 | W.PN.HOSP.TC ---
Addendum entered and electronically signed by Solis Valentine MD 10/24/24 23:19:
Attending Addendum-
I saw and evaluated the patient. I reviewed the resident�s note and agree with findings and plan as documented in the resident�s note. Sub: epigastric pain greatly improved. tolerating clears. Denies fevers chills NV. appetite improved. Full 12
point ROS reviewed and negative except as documented Exam: Vitals reviewed in chart GEN-Nad heart RRR lungs clear abd soft NT, no rebound guarding LE no edema
Plan:
#Acute necrotizing pancreatitis
-Pancreatic Divisum
-Severe Hypertriglyceridemia- now resolved- >1000->127
-advance diet
-Pain control with Dilaudid, Toradol, acetaminophen
-Antiemetics
-Trend LFTs-improving
-CT A/P-Findings of acute pancreatitis with a 1.8 cm focus of hypoattenuation within the pancreatic tail, likely necrosis. There is fluid which extends into the left paracolic gutter. reactive duodenitis.
-c/s GI - appreciate input
-MRCP- 1. Findings of pancreatitis with a heterogeneous appearance of the pancreatic tail which is likely secondary to known necrosis although evaluation is limited given lack of IV contrast. There is no discrete peripancreatic collection. There is
moderate fluid which tracks into the paracolic gutters and retroperitoneum. There is small volume perihepatic and perisplenic free fluid.
2.Pancreatic divisum.
-lipase trending down
-cont fenofibrate
-OK for DC and f/u as OP with GI in 8 weeks
# Hyperbilirubinemia
- elevated t bili
- cont to trend
- d/w GI ok for DC with close follow
# Leukocytosis
- reactive
- resolved
# Transaminitis
- resolved
# Hyponatremia
- resolved
DVT prophylaxis�SCDs
CODE STATUS�full code->DNR-->Full patient rescinded
Time spent coordinating care, DC planning, review of DC plan of care with resident, transition of care, review of records, med rec/scripts sent electronically, consults, notes, d/w consultants, nursing, family, and CM� 3 mins >50% of this time was
devoted to counseling and coordination of care
Original Note:
Today's Communication/Plan
-
ADAT to low fat today
monitor pain medication requirement
c/w IVF 200cc
lipase back to normal
If tolerating diet and not requiring IV pain medication can possibly DC later today.
Assessment / Plan
Assessment / Plan
54 year old male with no significant pmhx who presented with 2 days of abdominal pain, nausea and vomiting, found to have pancreatitis
#Acute Interstitial Pancreatitis w/ necrosis of pancreatic Tail (2* hypertriglyceridemia vs. choledocholithiasis vs. alcoholic)
#Transaminitis
- likely alcohol induced given history, no biliary findings of imaging and no hx of gallstones
- abdominal pain, Lipase >3x ULN, Leukocytosis 19.4
- CT report - peripancreatic stranding, 1.8 focus of likely necrosis of pancreatic tail, interstitial edema surrounding pancreas, reactive duodenitis.
- Lipase 1120 -1325 - 249
- Increase IVF to 200cc/hr
- Pain management titrated down -- Ibuprofen moderate pain, IV Toradol for severe
- Zofran prn
- triglycerides 1426 -- s/p Fenofibrate 145mg & fluids, repeat 124.
- Low Fat breakfast today, ADAT
- monitor for development of systemic signs given pancreatic tail necrosis
- GI consulted for questionable choledocholithiasis, transaminitis on presentation and ? pursuit of MRCP -- pt should have GI follow up with possible repeat imaging
#Pancreatic Divisum
- Evidenced on MRCP imaging
- predisposes to pancreatitis, will communicate this to the patient
#Hyperbilirubinemia
- elevated Tbili, today to 2.9, with resolution of abd symptoms
- no acute hepatobiliary findings on imaging
- Follow up with GI as OP and with PCP in 1 week for repeat labs.
#Hypertriglyceridemia
- TGs 1426, Lipid Panel unable to result properly due to TGs, no prior h/o lipid disease per patient
- likely contributing factor to pancreatitis
- Fenofibrate 145mg hs for TGs >1000 in setting of acute pancreatitis
- TGs reduced to 124 today
- follow up with PCP as outpatient for lipid monitoring and repeat Lipid Panel in 1 week.
DVT PPx: SCDs
Code Status: Full Code
Anticipated Discharge: 24 - 48 hours
Subjective/Interval History
-
Date of Service: October 24, 2024
Has appetite for CLD and ate CL for breakfast, lunch and dinner yesterday. Still requiring IV Toradol with meals and x2 Dilaudid overnight. No new nausea, vomiting, fever, chills.
Objective Data
-
Labs:
Laboratory Results
10/24/24
06:05
WBC 10.8
Hgb 12.4 L
Hct 35.2 L
Plt Count 159
Sodium 136
Potassium 4.6
Chloride 101
Carbon Dioxide 31 H
BUN 10
Creatinine 1.0
Glucose 93
Calcium 8.7
Total Bilirubin 2.9 H
AST 47
ALT 43
Alkaline Phosphatase 72
Vital Signs:
Vital Signs
Temp Pulse Resp BP Pulse Ox
99.2 F 100 16 114/80 95
10/23/24 23:22 10/23/24 23:22 10/23/24 23:22 10/23/24 23:22 10/23/24 23:22
I&O
10/23/24 10/24/24 10/25/24
06:59 06:59 06:59
Intake Total 200 / 200 2460 / 2460
Output Total 900 / 900
Balance 200 / 200 1560 / 1560
Review of Systems
-
History Source: Patient
All other systems: Reviewed and negative
Constitutional: Reports No Symptoms
EENT: Reports No Symptoms Reported
Respiratory: Reports No Symptoms
Cardiac: Reports No Symptoms
Abdomen/GI: Reports Abdominal Pain (2/10 at worst, 0/10 right now); Denies Nausea, Vomiting or Diarrhea
Breast: Reports N/A
Genitourinary: Reports No Symptoms
Musculoskeletal: Reports No Symptoms
Skin: Reports No Symptoms
Neuro: Reports No Symptoms
Endocrine: Reports No Symptoms
Hematologic / Lymphatic: Reports No Symptoms
Allergy / Immunology: Reports No Symptoms
Physical Exam
-
General: Well Developed, Well Nourished, No Apparent Distress and Comfortable
HEENT: Normocephalic, Atraumatic, Moist Mucous Membranes, Anicteric, [place] Conjunctivae, No Ptosis, PERRLA, Nose Appears Normal and Ears Appear Normal
Respiratory: Clear to Auscultation and Non Labored Respirations; Negative Wheezes, Rales or Rhonchi
Cardiac: Regular Rhythm and S1/S2; Negative Murmur or Rub
Breast: N/A
GI: Soft, Nontender, Nondistended and Normal Bowel Sounds
Genito-urinary: No Costovertebral Tender
Musculoskeletal: No Clubbing, No Cyanosis and No Edema
Skin: Warm, Dry and IV Access / Catheter Site
Neuro: AO x 3
Psych: Calm
[2024-10-24 08:15] LABS: Lipase 249 U/L (23-300)
--- NOTE | 2024-10-24 09:13 | W.PN.GI.CBS2 ---
Today's Communication / Plan
-
Overall improving, tolerating a diet. Okay for d/c home today. OP f/u with GI in 8 weeks. GI will sign off, please call with questions
Assessment / Plan
-
Anuj Perrin is a 54 y.o. with no significant pmhx who presented with abdominal pain found to have pancreatitis with 1.8 cm focus of necrosis in the pancreatic tail, triglycerides found to be >1000. He admits to social etoh abuse, more heavy use
about 15 years ago. Denies prior history of pancreatitis. He was on an insulin gtt, now normal triglycerides. Currently, tolerating a diet, states he has no pain, wanting to be discharged later.
MRCP showed pancreatitis with likely pancreatic necrosis in the pancreatic tail. There is no discrete peripancreatic collection. There is moderate fluid which tracks into the paracolic gutters and retroperitoneum. There is small volume perihepatic
and perisplenic free fluid. Pancreatic divisum. Gallbladder mildly distended.
WBC 19.4 --> 12.3
Lipase 1120 --> 1325
BUN 126 -->11
CRP >270
Trig 1426 --> 124
Tbili 1.3 --> 2.2--> 2.9
Dbili 1.0--
AST 163 --> 59--> 47
ALT 107 --> 51--> 43
Alk phos 85 --> 61--> 72
#Acute interstitial pancreatitis c/b pancreatic necrosis-- ddx hypertrig vs. pancreatic divisum vs. etoh vs. microlithiasis
-initial leukocytosis, now resolved. No evidence of infection. Hold on antibiotics
-clinically improving, but CRP >250; Lipase normalized. BUN normal
-tolerating diet
-okay for d/c home today from a GI perspective, outpatient f/u arranged in 8 weeks, will plan to repeat MRCP at that time
Subjective
Subjective
Date of Service: October 24, 2024
Patient feeling much better, wants to go home today. Tolerating diet. LFTs improving, mild bump in bili. Lipase normalized.
Objective
Data Reviewed
Laboratory Data:
Laboratory Results
10/24/24 06:05
10/24/24 06:05
Laboratory Results
Total Bilirubin 2.9 mg/dl (0.2-1.3) H 10/24/24 06:05
AST 47 U/L (17-59) 10/24/24 06:05
ALT 43 U/L (0-50) 10/24/24 06:05
Alkaline Phosphatase 72 U/L (38-126) 10/24/24 06:05
Lipase 249 U/L (23-300) 10/24/24 06:05
Vital Signs and I&O:
Vital Signs
Temp Pulse Resp BP Pulse Ox
97.9 F 76 18 103/71 97
10/24/24 07:30 10/24/24 07:30 10/24/24 07:30 10/24/24 07:30 10/24/24 07:30
I&O
10/23/24 10/24/24 10/25/24
06:59 06:59 06:59
Intake Total 200 / 200 2460 / 2460
Output Total 900 / 900
Balance 200 / 200 1560 / 1560
Physical Exam
Physical Exam
HEENT: Anicteric and Moist mucous membranes
GI: Soft, Non Distended, Non Tender and Normal Bowel Sounds
--- NOTE | 2024-10-24 14:43 | PN.CDI ---
CDI
- -
CDI:
Physician Documentation Request
Admit Date: 10/22/24 07:03
Dear Doctor Hugo,
Please review the following and provide your response in the progress notes.
Clinical Indicators:
Laboratory Tests
10/22/24 10/23/24 10/24/24
02:59 06:19 06:05
Total Bilirubin 1.3 2.2 H D 2.9 H
Direct Bilirubin 1.0 H 1.7 H
Based on the above and your clinical assessment, please clarify in the progress notes, the appropriate diagnosis, if significant, that supports the above abnormalities and additional evaluation, monitoring and/or treatment rendered:
Elevated total bilirubin
Abnormal lab value, clinically insignificant
Other(please specify)
Use of terms such as suspected, likely, concern for, or probable (associated with a specific diagnosis that is being evaluated, monitored, or treated as if it exists) are acceptable and can be coded in the inpatient setting, when documented at the
time of discharge.
Thank you,
Kecia Servin RN BSN CCDS
CDI Specialist
Please contact via tiger text
Please use your independent medical judgment in providing your response.
--- NOTE | 2024-10-24 15:36 | CM ---
MD entered order for discharge.
Spoke with Eduardo . Pt and agree with discharge today.
with drive home.
Offered VN . Pt declined need.
PLAN Home no needs .
[2024-10-24 15:48] VITALS: BP 119/75
--- NOTE | 2024-10-24 18:17 | W.DCSUMMARY ---
Addendum entered and electronically signed by Solis Valentine MD 10/24/24 23:19:
Read, reviewed, and agree. See same day progress note for additional details.
Juan Valentine MD
Original Note:
Documented by User: Erik Arias MD, Resident 10/24/24 18:28
Discharge Summary
Discharge Data
Date of Admission: 10/22/24
Date of Discharge: 10/24/24
Total time spent discharging patient (in min): >30m
-
Pending Results: No
Hospital Course
Discharging Physician : Dr. Erik Arias, Dr. Solis Valentine
Disposition : Home
Primary care physician : Dr. Tiana Parker
Principal Discharge diagnosis : Acute Pancreatitis
Chronic Discharge diagnosis : None.
Hospital Course :
54 year old male with no significant pmhx who presented with 2 days of abdominal pain, nausea and vomiting, admitted for management of acute pancreatitis.
#Acute Interstitial Pancreatitis w/ necrosis of pancreatic Tail (2* hypertriglyceridemia vs. choledocholithiasis vs. alcoholic)
#Transaminitis
CT imaging on admission showing pancreatitis with tail necrosis, no abscess. patient not septic. managed with IVF, IV antiemetics, pain medication. Lipase was elevated initially then came down to normal by hospital day 2. Triglycerides were found to
be significantly elevated at 1426 then decreased to 124 with Fenofibrate 145mg. GI was consulted. MRCP was done which showed no cholelithiasis or choledocholithiasis. Patient had Pancreatic divisum. Pain continued to improve. His diet was advanced
to clear liquid, then to low fat. On hospital day 2 he was tolerating oral intake of fluids and solids on a low fat diet without pain, nausea or need of pain medication. He was thus deemed stable for discharge. Recommended to follow up with GI in
4-6 weeks for repeat imaging of pancreas.
#Pancreatic Divisum
Evidenced on MRCP imaging (report beow). Predisposes to pancreatitis, communicated this to the patient and his at bedside.
#Hyperbilirubinemia
Found to have elevated Tbili during admission without evidence of hepatobiliary findings of imaging. Abd symptoms resolved on day of discharge. Recommended follow up with GI as OP in 4-6 weeks as above and with PCP in 1 week for repeat CMP and Lipid
Panel.
#Hypertriglyceridemia
Triglycerides as above elevated on admission to 1426. patient endorses no personal or family history of lipid disorders. Treated with fenofibrate 145mg to reduce TGs in the setting of acute pancreatitis; repeat decreased to 124. Follow up with PCP
as outpatient for repeat Lipid Panel and continued lipid monitoring.
Important imaging findings :
CT Abd/pelvis W Iv Cont (10/22/2024):
IMPRESSION:
Findings of acute pancreatitis with a 1.8 cm focus of hypoattenuation within the pancreatic tail, likely necrosis. There is fluid which extends into the left paracolic gutter. There is mild edema and enhancement along the first and second portions
of the duodenum which may represent reactive duodenitis. There are mildly prominent upper abdominal and retroperitoneal lymph nodes which are likely reactive.
Hepatic steatosis.
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
MR Mrcp Without (10/23/2024):
IMPRESSION:
1. Findings of pancreatitis with a heterogeneous appearance of the pancreatic tail which is likely secondary to known necrosis although evaluation is limited given lack of IV contrast. There is no discrete peripancreatic collection. There is
moderate fluid which tracks into the paracolic gutters and retroperitoneum. There is small volume perihepatic and perisplenic free fluid.
2. Pancreatic divisum.
3. There is no evidence of cholelithiasis or choledocholithiasis.
4. Small left and trace right pleural effusions with adjacent atelectasis.
Procedure findings :
None.
Discharge Plan
-
Patient Disposition: Home (Routine Discharge)
Discharge Diagnosis/Procedures: Acute Pancreatitis
Condition: Good
Diet: As tolerated
Activity: No restrictions
Blood Work: Lipid Panel and CMP within one week
Referrals:
Tiana Parker MD [Family Provider, [facility]]
Xin Mckeon DO [Active, Gastroenterology]
Referral Note: follow up 4-6 week with pancreatitis, consider further imaging with necrosis. Return to hospital for recurrent pain, fever or difficulty with eating.
Additional Discharge Medication Instructions: Take Ibuprofen as needed if abdominal pain persists
Call Dr. Mckeon for GI follow up in 8 weeks.
Call primary care doctor/family physician within 1 week for repeat Lipid Panel test and Hospital Follow Up
Prescriptions:
No Action
No Current Medications
0
Discharge Orders:
Discharge Patient (As Directed); Ordered 10/24/24
Ordered By: Erik Arias
Discharge Date and Time
Discharge Date/Time: 10/24/24 17:33
Print Language: FAROESE

Documented by User: Solis Valentine MD 10/24/24 23:15
Discharge Summary
Discharge Data
Date of Admission: 10/22/24
Date of Discharge: 10/24/24
Discharge Plan
-
Patient Disposition: Home (Routine Discharge)
Discharge Diagnosis/Procedures: Acute Pancreatitis
Condition: Good
Diet: As tolerated
Activity: No restrictions
Blood Work: Lipid Panel and CMP within one week
Referrals:
Tiana Parker MD [Family Provider, [facility]]
Xin Mckeon DO [Active, Gastroenterology]
Referral Note: follow up 4-6 week with pancreatitis, consider further imaging with necrosis. Return to hospital for recurrent pain, fever or difficulty with eating.
Additional Discharge Medication Instructions: Take Ibuprofen as needed if abdominal pain persists
Call Dr. Mckeon for GI follow up in 8 weeks.
Call primary care doctor/family physician within 1 week for repeat Lipid Panel test and Hospital Follow Up
Prescriptions:
No Action
No Current Medications
0
Discharge Orders:
Discharge Patient (As Directed); Ordered 10/24/24
Ordered By: Erik Arias
Discharge Date and Time
Discharge Date/Time: 10/24/24 17:33
Print Language: FAROESE
== END 2024-10-24 17:33 | disposition home or self-care (01) | DRG 439 ==
LOC: 4 EAST ACU 07:03
PROVIDERS: ADMITTING PHYSICIAN Internal Medicine; ATTENDING PHYSICIAN Family Medicine; CONSULT PHYSICIAN Internal Medicine; EMERGENCY PHYSICIAN Student in an Organized Health Care Education/Training Program; FAMILY PHYSICIAN Internal Medicine
DX: K85.80 Other acute pancreatitis without necrosis or infection (principal); E87.1 Hypo-osmolality and hyponatremia; Q45.3 Other congenital malformations of pancreas and pancreatic duct
CPT/HCPCS: 74177; 74181; 80053; 80061; 81003; 81015; 82248; 83690; 83721; 84478; 85025; 85027; 86140; 93005; 96374; 96375; 99291; Q9967

== ENCOUNTER → 2025-04-10 12:10 | Outpatient (REF) | payer OTHER, SELFPAY | LOC: MRI 3T 12:10 | PROVIDERS: ATTENDING PHYSICIAN Internal Medicine; FAMILY PHYSICIAN Internal Medicine | DX: K85.91 Acute pancreatitis with uninfected necrosis, unspecified (principal) | CPT/HCPCS: 74183; A9575 ==